=== PATIENT | female | born 1985 | race American Indian/Alaskan Native ===

== ENCOUNTER 2017-01-23 17:23 | Emergency (ER) | payer MEDICAID, OTHER ==
--- NOTE | 2017-01-23 18:13 | EDM.PDOC ---
ED HPI GENERAL MEDICAL PROBLEM - General Chief Complaint: General Stated Complaint: BROUGHT FROM ALF Time Seen by Provider: 01/23/17 18:07 Source of Information: Reports: Patient History Limitations: Reports: No Limitations - History of Present Illness INITIAL COMMENTS - FREE TEXT/NARRATIVE: pt arrived with law enforcement for a body search looking for amphetamines. Onset: Today Duration: Hour(s): Location: Reports: Other ( There is a concern that there could be a container with amphetamines. ) Associated Symptoms: Reports: No Other Symptoms - Related Data Allergies Allergy/AdvReac Type Severity Reaction Status Date / Time amoxicillin Allergy Mild Rash Verified 01/23/17 17:43 Social & Family History - Tobacco Use Years of Tobacco use: 20 Packs/Tins Daily: 1 - Caffeine Use Caffeine Use: Reports: Coffee - Recreational Drug Use Recreational Drug Use: Yes Drug Use in Last 12 Months: Yes Recreational Drug Type: Reports: Heroin, Methamphetamine Recreational Drug Use Frequency: Daily ED ROS GENERAL - Review of Systems Review Of Systems: See Below Constitutional: Reports: No Symptoms HEENT: Reports: No Symptoms Respiratory: Reports: No Symptoms Cardiovascular: Reports: No Symptoms Endocrine: Reports: Polyuria GI/Abdominal: Reports: No Symptoms : Reports: No Symptoms ED EXAM, GENERAL - Physical Exam Exam: See Below Free Text/Narrative:: There is concrn that the pt could have a container of amphetamines in her vaginia. Exam Limited By: No Limitations General Appearance: Alert (Female) Exam: Other (pelvic exam was done which showed a piece of a old tampax which was removed. There was no other foreign body. arectal exam was done which is neg. ) Neurological: Alert, Oriented Course - Vital Signs Last Recorded V/S: Last Vital Signs Temp 37.4 C 01/23/17 17:40 Pulse 108 H 01/23/17 17:40 Resp 18 01/23/17 17:40 BP 180/98 H 01/23/17 17:40 Pulse Ox Departure - Departure Time of Disposition: 18:12 Disposition: Home, Self-Care 01 Condition: Fair Clinical Impression: Drug abuse, amphetamine type - Discharge Information Referrals: PCP,None [Primary Care Provider] - Care Plan Goals: Pt was searched for hidden drugs in her vag and this was neg.
== END 2017-01-23 18:27 | disposition home or self-care (01) ==
LOC: JP.ED 17:23
DX: F15.10 Other stimulant abuse, uncomplicated (principal); Z88.1 Allergy status to other antibiotic agents
CPT/HCPCS: 99282; 99283